=== PATIENT | male | born 1970 ===

== ENCOUNTER 2020-11-15 06:20 | Day surgery (SDC) | payer OTHER | END 2020-11-15 09:50 | disposition home or self-care (01) | LOC: AMB-ENDOS 06:20 | PROVIDERS: ATTEND Colon & Rectal Surgery | DX: K57.32 Diverticulitis of large intestine without perforation or abscess without bleeding (principal); K64.1 Second degree hemorrhoids; Z20.822 Contact with and (suspected) exposure to COVID-19 ==

== ENCOUNTER 2024-03-23 12:22 | Day surgery (SDC) | payer OTHER ==
[2024-03-17 09:12] LABS: HEMATOCRIT 40.3 % (39.0-48.0); HEMOGLOBIN 14.1 g/dL (13-16.00); MEAN CELL VOLUME 88.9 fL (80.0-100.00); MEAN CORPUSCULAR HEMOGLOBIN 31.2 pg (27.00-32.0); MEAN CORPUSCULAR HGB CONC 35.1 g/dl (32.0-36.0); PLATELET COUNT 275 K/uL (150-450); RED BLOOD COUNT 4.53 M/uL (4.00-6.00); RED CELL DISTRIBUTION WIDTH 12.9 % (11.5-14.5)
[2024-03-17 09:20] LABS: PH,URINE 7.5 (5.0-8.0); URINE APPEARANCE Clear; URINE BILIRRUBIN Negative (NEGATIVE); URINE BLOOD Negative; URINE COLOR Yellow; URINE GLUCOSE Negative (NEGATIVE); URINE KETONE Negative (NEGATIVE); URINE LEUKOCYTE Negative; URINE NITRATE Negative; URINE PROTEIN Negative (NEGATIVE); URINE UROBILINOGEN 0.2 E.U./dl
[2024-03-17 09:26] LABS: URINE BACTERIA 7.5 uL (0.0-1933)
[2024-03-17 09:30] LABS: URINE EPITHELIAL CELLS 0.6 uL (0.0-38.8); URINE RBC 1.3 uL (0.0-20.8); URINE WBC 0.4 uL (0.0-23.2)
[2024-03-17 09:34] LABS: INR 1.03; PARTIAL THROMBOPLASTIN TIME 31.4 SECONDS (22.0-34.0); PROTHROMBIN TIME 11.2 SECONDS (9.0-11.5)
[2024-03-17 10:05] LABS: CALCIUM 9.7 mg/dL (8.5-10.1); GFR 77.58; POTASSIUM 3.8 mEq/L (3.5-5.1)
[~2024-03-23] VITALS: Ht 177.8 cm; Wt 111.1 kg
[~2024-03-23 12:22] MED LIST: BENICAR20 MG PO; FENOFIBRATE145 MG PO; HYDROCHLOROTHIA25 MG PO; LOVAZA1 GM PO; NORVASC10 MG PO
[2024-03-23] MEDS ORDERED: KETO10TA2 PO (16:06)
[2024-03-23] MEDS ORDERED: TRAMADOL HCL50 MG PO (16:06)
[2024-03-23] MEDS ORDERED: MIRALAX17 GM PO (16:06)
[2024-03-23] MEDS ORDERED: TYLENOL ARTHRI650 MG PO (16:06)
[2024-03-23] MEDS ORDERED: CEFAZOLIN SODIUM 1,000 MG VIAL ONE (16:42)
[2024-03-23] MEDS ORDERED: BUPIVACAINE HCL/MPF 0.5% 30ML VIAL ONE (19:38)
[2024-03-23] MEDS ORDERED: SUGAMMADEX SODIUM 200 MG/2 ML VIAL IV ONE (20:22)
[2024-03-23] MEDS ORDERED: MORPHINE SULFATE 4 MG/ML VIAL IV ONE ×2 (21:15→21:45)
== END 2024-03-23 22:20 | disposition home or self-care (01) ==
LOC: CIR.AMB 12:22
PROVIDERS: ATTEND Surgery
DX: K42.0 Umbilical hernia with obstruction, without gangrene (principal); I10 Essential (primary) hypertension; E78.00 Pure hypercholesterolemia, unspecified
CPT/HCPCS: 49594; C1781